=== PATIENT | male | born 1975 | race Caucasian/White ===

== ENCOUNTER 2021-12-02 17:04 | Emergency (ER) | payer OTHER ==
[2021-12-02] MEDS ORDERED: NAPROXEN500 MG PO (20:20)
[2021-12-02] MEDS ORDERED: BACLOFEN 10MG T10 MG PO (20:20)
== END 2021-12-02 20:28 | disposition home or self-care (01) ==
LOC: FER 17:04
DX: S46.912A Strain of unspecified muscle, fascia and tendon at shoulder and upper arm level, left arm, initial encounter (principal); S16.1XXA Strain of muscle, fascia and tendon at neck level, initial encounter; S00.411A Abrasion of right ear, initial encounter; S00.01XA Abrasion of scalp, initial encounter; S60.511A Abrasion of right hand, initial encounter; S20.311A Abrasion of right front wall of thorax, initial encounter; S09.90XA Unspecified injury of head, initial encounter; E11.9 Type 2 diabetes mellitus without complications; Z79.84 Long term (current) use of oral hypoglycemic drugs; V86.59XA Driver of other special all-terrain or other off-road motor vehicle injured in nontraffic accident, initial encounter
CPT/HCPCS: 70450; 71101; 72125; 73030; 73130